=== PATIENT | male | born 1970 | race Caucasian/White ===

== ENCOUNTER 2024-12-12 13:58 | Emergency (ER) | payer OTHER ==
[~2024-12-12] VITALS: Ht 195.6 cm; Wt 92.2 kg
[2024-12-12 14:09] VITALS: TEMP 97.8
--- NOTE | 2024-12-12 14:40 | ELECTROCARDIOGRAPH REPORT ---
[facility] Test Date: 2024-12-12 Test Time: 14:37:27 Pat Name: JODIE HILL Department: [facility] Patient ID: [facility]-[id number] Room: Gender: M [employer] Technician: : 1970 Requested By: ADELAIDA GOVEA Order Number: [id number] Reading MD: Dr. Jose Rollins Measurements Intervals [place] Rate: 65 P: 8 MO: 158 QRS: -32 QRSD: 107 T: 59 QT: 420 QTc: 437 Interpretive Statements Sinus rhythm Left axis deviation ST elev, probable normal early repol pattern Electronically Signed On 12-13-2024 18:21:[address] Jose Rollins Please click the below link to view image of tracing.
--- NOTE | 2024-12-12 14:45 | Physician Documentation ---
History of Present Illness ~ Chief Complaint: Numbness Stated Complaint: "HAVING A HARD TIME GETTING MY WORDS OUT" Time Seen by MD: 14:14 Source: patient Mode of Arrival: POV, Ambulatory Exam Limitations: no limitations HPI Chief Complaint: Multiple complaints: Numbness in both legs, chest pain, shortness a breath, difficulty using tongue to speak Caveat: None Independent Historians: None History of Present Illness: Patient is a 54-year-old man who was at work when 30 minutes prior to arrival he developed this sensation like he had to force his tongue to the roof of his mouth to be able to speak. No slurred speech. No weakness in one arm or one leg. No facial droop. At 11:00 a.m., the patient experienced chest pain, shortness a breath and numbness from the knee down in both legs. Although he says is not really numbness but a tingling. Patient denies any other acute symptoms of illness. No fever, no cough, no nausea vomiting diarrhea, no abdominal pain. No alleviating or exacerbating factors. Review of systems: All systems were reviewed and are negative except for what is indicated in the history of present illness. Past Medical History: None Past Surgical History: None Social History: No tobacco use, no alcohol use, no drug use Medications: Reviewed as documented Nursing Notes Allergies: Reviewed as documented in Nursing Notes Medication Reconciliation Allergies: Coded Allergies: No Known Allergies (Unverified , 12/12/24) Review of Systems All Other Systems at this time: Reviewed and Negative ROS Patient denies any other acute symptoms other than above. All other systems are negative Physical Exam Vital Signs: RN Vital Signs have been reviewed: Yes, Temperature: 97.8, Source: Temporal, Heart Rate: 84, Respiratory Rate: 20, BP: 143/81, Pulse Oximetry: 98, Weight: 92.200 Pulse Oximetry Reflects: adequate oxygenation General Appearance General Appearance: No distress HEENT: Normal OP, moist oral mucosa, PERRL, EOMI Neck: supple, normal ROM, trachea midline Pulmonary: No respiratory distress, CTA, BS equal Cardiac: RRR, no murmur, rub or gallop, GI: nondistended, soft, nontender, normal bowel sounds, no guarding, no rebound Extremities: normal ROM, no swelling, non-tender Skin: intact, dry, warm, no rashes Neuro: AAOx3, speech is clear, no focal motor weakness Psych: normal affect, good eye contact, no apparent hallucination, normal speech Progress Results/Orders Results/Orders Orders - ADELAIDA GOVEA MD Chest,Single View (12/12/24 14:12) Monitor (12/12/24 14:12) Saline Lock (12/12/24 14:12) Oxygen (12/12/24 14:12) Completed Orders - ADELAIDA GOVEA MD Chest,Single View (12/12/24 14:12) Cbc/Diff (12/12/24 14:12) BMP (12/12/24 14:12) PBNP (12/12/24 14:12) Electrocardiogram (12/12/24 14:12) Hs Troponin I W Calculations (12/12/24 14:12) Hs Troponin I W Calculations (12/12/24 16:12) Vital Signs 12/12/24 12/12/24 12/12/24 14:09 14:38 15:59 Temp 97.8 Pulse 84 61 Resp 18 20 14 B/P (MAP) 143/81 127/85 (99) Pulse Ox 98 98 O2 Flow Rate 0 Laboratory Tests Test 12/12/24 14:28 12/12/24 16:05 White Blood Count 10.1 Red Blood Count 4.79 Hemoglobin 14.9 Hematocrit 43.8 Mean Corpuscular Volume 91.4 Mean Corpuscular Hemoglobin 31.2 H Mean Corpuscular Hemoglobin Concent 34.1 Red Cell Distribution Width 12.9 Platelet Count 268 Mean Platelet Volume 7.5 Neutrophils (%) (Auto) 68.3 Lymphocytes (%) (Auto) 23.0 Monocytes (%) (Auto) 6.2 Eosinophils (%) (Auto) 1.3 Basophils (%) (Auto) 1.2 H Neutrophils # (Auto) 6.9 Lymphocytes # (Auto) 2.3 Monocytes # (Auto) 0.6 Eosinophils # (Auto) 0.1 Basophils # (Auto) 0.1 CBC Comment Sodium Level 138 Potassium Level 3.7 Chloride Level 103 Carbon Dioxide Level 26.7 Anion Gap 8 Blood Urea Nitrogen 12 Creatinine 0.92 Estimated GFR/1.73 m2 86 BUN/Creatinine Ratio 13.0 Glucose Level 104 Calcium Level 9.3 Troponin I High Sensitivity 5 5 Pro-B-Type Natriuretic Peptide 31 Albumin 4.1 Chemistry Comments Troponin I High Sens Percent Delta 0 Troponin I Hi Sens Absolute Change 0 Medical Decision Making Findings Differential diagnosis includes but is not limited to: Acute coronary syndrome, thrombotic CVA, electrolyte abnormalities, dehydration, acute kidney injury EKG independent interpretation: Performed at 2:37 p.m.. Normal sinus rhythm, left axis deviation, J-point elevation, normal ST segments Chest x-ray, single view, indication: Independent interpretation: Laboratory data independent interpretation: CBC: CMP: Toxicology: Serology: Urinalysis: Emergency department course/medical decision-making: Consultation/communications: Departure Time of Disposition: 17:25 Disposition: 01 HOME / SELF CARE / HOMELESS Impression: Primary Impression: Numbness of lower limb Additional Impression: Chest pain Qualified Codes: R07.9 - Chest pain, unspecified Condition: Stable Discharge Instructions: Nonspecific Chest Pain, Adult, [id number], Paresthesia, [id number] Additional Instructions: RECOMMEND YOU FOLLOW UP WITH YOUR PRIMARY CARE DOCTOR TOMORROW. CONSIDER REFERRAL TO A NEUROLOGIST AND SOLAR TECH. THE CAUSE OF YOUR SYMPTOMS IS UNKNOWN. Education Educated: Patient, Family Educated regarding: diagnosis, treatment, need for follow up Signature Scribe Signature: No scribe Attestation: No scribe ADELAIDA GOVEA MD Dec 12, 2024 14:45
[2024-12-12 14:46] LABS: MEAN PLATELET VOLUME 7.5 FL (7.4-10.4); RED CELL DISTRIBUTION WIDTH 12.9 % (11.5-14.5)
--- NOTE | 2024-12-12 15:05 | RADIOLOGY REPORT ---
CHEST RADIOGRAPH Indication: CP Technique: Single frontal view of the chest was obtained COMPARISON: None FINDINGS: Lines and Tubes: None Lungs: Clear Pleura: No effusion. No pneumothorax. Cardiomediastinal contours: Unremarkable Bones: Unremarkable IMPRESSION: No acute disease.
[2024-12-12 15:16] LABS: CREATININE 0.92 MG/DL (0.60-1.10); PRO BRAIN NATRIURETIC PEPTIDE 31 PG/ML (0-125); TOTAL CARBON DIOXIDE 26.7 MMOL/L (24-32); eCRCL 117 ML/MIN; eGFR 86 ML/MIN
[2024-12-12 17:38] VITALS: BP 140/88; PULSE 88; RESP 18; O2SAT 100
== END 2024-12-12 17:41 | disposition home or self-care (01) ==
LOC: ER 14:01
DX: R20.0 Anesthesia of skin (principal); R07.9 Chest pain, unspecified; R20.2 Paresthesia of skin; R06.02 Shortness of breath
CPT/HCPCS: 36415; 71045; 80048; 83880; 84484; 85025; 93005; 99285